=== PATIENT | female | born 1960 | race Caucasian/White ===

== ENCOUNTER 2017-12-19 03:45 | Emergency (ER) | payer OTHER ==
--- NOTE | 2017-12-19 05:23 | ER ---
Nurse's Notes [facility] Name: Prema Root Age: 57 yrs Sex: Female : 1960 Arrival Date: 12/19/2017 Time: 03:46 Bed 6 Private MD: Diagnosis: Cough;Sore throat Presentation: 12/19 03:58 Presenting complaint: Patient states: she had laser iridoctomy last December 14, 2017 and mg2 was prescribed with predisolone drops. she started taking the medication last December 16 at night and woke up with throat swelling. today, she had cough with greenish colored sputum, pain and numbness in the neck and right side of the body. Transition of care: patient was not received from another setting of care. Onset: The symptoms/episode began/occurred 4 days ago. Anaphylaxis evaluation. Onset of symptoms was December 16, 2017. Initial Sepsis Screen: Does the patient meet any 2 criteria? No. Patient's initial sepsis screen is negative. Does the patient have a suspected source of infection? No. Patient's initial sepsis screen is negative. Care prior to arrival: None. 03:58 Method Of Arrival: Ambulatory mg2 03:58 Acuity: DEEPAK 4 mg2 Historical: - Allergies: 04:05 Amoxicillin; mg2 04:05 Codeine; mg2 - Home Meds: 04:05 multivitamin Oral cap daily [Active]; Prilosec 40 mg Oral cpDR 1 cap once daily mg2 [Active]; - PMHx: 04:05 None; mg2 - PSHx: 04:05 Cholecystectomy; mg2 04:19 laser iridoctomy; mg2 - Immunization history:: last may. - Social history:: Smoking status: Patient/guardian denies using tobacco. - Family history:: not pertinent. - Hospitalizations: : No recent hospitalization is reported. Screenin:14 Abuse screen: Denies threats or abuse. Denies injuries from another. Nutritional mg2 screening: No deficits noted. Tuberculosis screening: No symptoms or risk factors identified. Fall Risk None identified. Assessment: 04:11 General: Appears in no apparent distress. comfortable, Behavior is calm, cooperative. mg2 Pain: Complains of pain in right leg and neck Quality of pain is described as numb, Pain began gradually, 2-3 days ago. Is intermittent. Neuro: Level of Consciousness is awake, alert, obeys commands, Oriented to person, place, time, situation. Cardiovascular: Capillary refill < 3 seconds Patient's skin is warm and dry. Respiratory: Airway is patent Respiratory effort is even, unlabored, Respiratory pattern is regular, symmetrical. GI: No signs and/or symptoms were reported involving the gastrointestinal system. : No signs and/or symptoms were reported regarding the genitourinary system. EENT: Throat is clear. Derm: No signs and/or symptoms reported regarding the dermatologic system. Musculoskeletal: No signs and/or symptoms reported regarding the musculoskeletal system. 05:36 Reassessment: discussed d/c and ff-up instructions. verbalizes understanding. Left ED. mg2 Vital Signs: 04:06 BP 142 / 91; Pulse 100; Resp 18; Pulse Ox 100% on R/A; mg2 05:00 BP 117 / 63; Pulse 94; Resp 18; Temp 98.5; Pulse Ox 99% ; Weight 61.23 kg; Height 5 ft. mg2 2 in. (157.48 cm); 05:00 Body Mass Index 24.69 (61.23 kg, 157.48 cm) mg2 ED Course: 03:46 Patient arrived in ED. ds1 03:48 Matheus Thakkar MD is Attending Physician. rn 03:58 Westley Crespo, BOO is Primary Nurse. mg2 04:03 Triage completed. mg2 04:14 Flu and/or RSV swab sent to lab. Strep swab sent to lab. mg2 04:17 Patient moved to radiology via wheelchair. kw 04:17 X-ray completed. Patient tolerated procedure well. kw 04:18 Patient moved back from radiology. kw 04:18 XRAY Chest Pa And Lat (2 Views) In Process Unspecified. EDMS 04:50 Arm band placed on right wrist. mg2 04:50 Patient has correct armband on for positive identification. Bed in low position. Call mg2 light in reach. Noise minimized. 05:04 No provider procedures requiring assistance completed. mg2 Administered Medications: No medications were administered Outcome: 05:23 Discharge ordered by . rn 05:35 Discharged to home ambulatory, with mg2 05:35 Condition: stable 05:35 Discharge instructions given to Instructed on Demonstrated understanding of instructions, follow-up care. 05:37 Patient left the ED. mg2 Signatures: Dispatcher [employer] EDHI MauriceMelanie ds1 Matheus Thakkar MD MD rn Whitley, Kimberlee kw Westley Crespo, RN RN mg2
--- NOTE | 2017-12-19 05:24 | EDPHYS ---
Physician Documentation [facility] Name: Prema Root Age: 57 yrs Sex: Female : 1960 Arrival Date: 12/19/2017 Time: 03:46 Bed 6 Private MD: ED Physician Matheus Thakkar HPI: 12/19 04:07 This 57 yrs old Female presents to ER via Ambulatory with complaints of sore rn throat. 04:07 The patient presents with sore throat. The patient describes throat pain as raw, rn scratchy. Onset: The symptoms/episode began/occurred this morning. Severity of symptoms: At their worst the symptoms were mild, in the emergency department the symptoms are unchanged. Associated signs and symptoms: Pertinent positives: chills, rhinorrhea. The patient has not experienced similar symptoms in the past. Reports had iridotomy recently, prescribed drops, has sensation of throat closing on her, told to stop drops, since then reports post-nasal drip, sore throat, and muscle aches of neck/back/legs. No focal weakness or complaint. No fever. + chills, + tremors that come and go. . Historical: - Allergies: 04:05 Amoxicillin; mg2 04:05 Codeine; mg2 - Home Meds: 04:05 multivitamin Oral cap daily [Active]; Prilosec 40 mg Oral cpDR 1 cap once daily mg2 [Active]; - PMHx: 04:05 None; mg2 - PSHx: 04:05 Cholecystectomy; mg2 04:19 laser iridoctomy; mg2 - Immunization history:: last may. - Social history:: Smoking status: Patient/guardian denies using tobacco. - Family history:: not pertinent. - Hospitalizations: : No recent hospitalization is reported. ROS: 04:07 Constitutional: Negative for fever, and weight loss, Eyes: Negative for injury, pain, rn redness, and discharge, ENT: + sore throat Neck: Negative for injury, pain, and swelling, Cardiovascular: Negative for chest pain, palpitations, and edema, Respiratory: + cough, no sob Abdomen/GI: Negative for abdominal pain, nausea, vomiting, diarrhea, and constipation, MS/Extremity: Negative for injury and deformity, Neuro: Negative for headache, weakness, numbness, tingling, and seizure. Exam: 04:07 Constitutional: This is a well developed, well nourished patient who is awake, alert, rn appears anxious, no acute distress Head/Face: Normocephalic, atraumatic. Eyes: Pupils equal round and reactive to light, extra-ocular motions intact. Lids and lashes normal. Conjunctiva and sclera are non-icteric and not injected. Cornea within normal limits. Periorbital areas with no swelling, redness, or edema. ENT: Nares patent. No nasal discharge, no septal abnormalities noted. Oropharynx with no redness, swelling, or masses, exudates, or evidence of obstruction, uvula midline. Mucous membranes moist. Neck: Trachea midline, no thyromegaly or masses palpated, and no cervical lymphadenopathy. Supple, full range of motion without nuchal rigidity, or vertebral point tenderness. No Meningismus. Respiratory: Lungs have equal breath sounds bilaterally. No increased work of breathing, no retractions or nasal flaring. Skin: Warm, dry with normal turgor. Normal color with no rashes, no lesions, and no evidence of cellulitis. MS/ Extremity: Pulses equal, no cyanosis. Neurovascular intact. Full, normal range of motion. Equal circumference. Neuro: Awake and alert, GCS 15, oriented to person, place, time, and situation. Cranial nerves II-XII grossly intact. Motor strength 5/5 in all extremities. Sensory grossly intact. Cerebellar exam normal. Normal gait. Vital Signs: 04:06 BP 142 / 91; Pulse 100; Resp 18; Pulse Ox 100% on R/A; mg2 05:00 BP 117 / 63; Pulse 94; Resp 18; Temp 98.5; Pulse Ox 99% ; Weight 61.23 kg; Height 5 ft. mg2 2 in. (157.48 cm); 05:00 Body Mass Index 24.69 (61.23 kg, 157.48 cm) mg2 MDM: 03:48 Patient medically screened. rn 05:22 Differential diagnosis: group A strep tonsillitis, influenza, laryngitis, pharyngitis, rn upper respiratory infection, viral syndrome. Data reviewed: vital signs, nurses notes, lab test result(s), radiologic studies, and as a result, I will discharge patient. Counseling: I had a detailed discussion with the patient and/or guardian regarding: the historical points, exam findings, and any diagnostic results supporting the discharge/admit diagnosis, lab results, radiology results, the need for outpatient follow up, to return to the emergency department if symptoms worsen or persist or if there are any questions or concerns that arise at home. Special discussion: I discussed with the patient/guardian in detail that at this point there is no indication for admission to the hospital. It is understood, however, that if the symptoms persist or worsen the patient needs to return immediately for re-evaluation. 12/19 04:06 Order name: Flu; Complete Time: 05: rn 12/19 04:06 Order name: Strep; Complete Time: : rn 12/19 04:06 Order name: XRAY Chest Pa And Lat (2 Views) rn 12/19 05:04 Order name: Throat Culture EDMS Administered Medications: No medications were administered Disposition: 12/19/17 05:23 Discharged to Home. Impression: Cough, Sore throat. - Condition is Stable. - Discharge Instructions: Drug Allergy, Sore Throat, Cough, Adult. - Medication Reconciliation Form, Thank You Letter, Antibiotic Education, Prescription Opioid Use form. - Follow up: Private Physician; When: As needed; Reason: Recheck today's complaints, Re-evaluation by your physician. - Problem is new. - Symptoms have improved. Signatures: Dispatcher [employer] EDMS Matheus Thakkar MD MD rn Gardose, Michele, RN RN mg2
--- NOTE | 2017-12-19 09:32 | RAD REPORT ---
EXAM DESCRIPTION: RAD - Chest Pa And Lat (2 Views) - 12/19/2017 4:25 am CLINICAL HISTORY: Cough and congestion COMPARISON: May 2016 TECHNIQUE: PA and lateral views of the chest were obtained. FINDINGS: The lungs are clear of a mass, infiltrate or failure finding. Prominent interstitial ainsley ngs are similar to the comparison. Heart size is normal and central vasculature is within normal li mits. No pleural effusion or pneumothorax seen. No acute bony finding noted. No aortic abnormality . IMPRESSION: No acute cardiopulmonary finding. Interstitial markings are prominent but unchanged.
== END 2017-12-19 05:37 | disposition home or self-care (01) ==
LOC: ER 03:45
DX: J02.9 Acute pharyngitis, unspecified (principal); Z88.1 Allergy status to other antibiotic agents; Z88.6 Allergy status to analgesic agent
CPT/HCPCS: 71046; 87070; 87081; 87804; 99283

== ENCOUNTER 2024-03-14 20:16 | Emergency (ER) | payer OTHER ==
[2024-03-14] MEDS ORDERED: ACETAMINOPHEN 500 MG TAB ONE (20:46)
[2024-03-14] MEDS ORDERED: IBUPROFEN 400 MG TAB ONE (20:46)
--- NOTE | 2024-03-14 20:46 | ER ---
Nurse's Notes [facility] Name: Prema Root Age: 64 yrs Sex: Female : 1960 Arrival Date: 03/14/2024 Time: 20:16 Bed 2 Private MD: Diagnosis: Acute posterior scalp contusion Presentation: 03/14 20:30 Chief complaint: Patient states: Rack fell and hit her in the back of head. No LOC, no cm10 blurred vision. pt reports headache and light headedness. Coronavirus screen: Client denies travel out of the [place] in the last 14 days. At this time, the client does not indicate any symptoms associated with coronavirus-19. Ebola Screen: Patient denies travel to an Ebola-affected area in the 21 days before illness onset. No symptoms or risks identified at this time. Initial Sepsis Screen: Does the patient meet any 2 criteria? No. Patient's initial sepsis screen is negative. Does the patient have a suspected source of infection? No. Patient's initial sepsis screen is negative. Risk Assessment: Do you want to hurt yourself or someone else? Patient reports no desire to harm self or others. Onset of symptoms was March 14, 2024. 20:30 Method Of Arrival: Ambulatory cm10 20:30 Acuity: DEEPAK 3 cm10 Triage Assessment: 20:31 General: Appears in no apparent distress. comfortable, Behavior is calm, cooperative. cm10 Neuro: No deficits noted. Level of Consciousness is awake, alert, obeys commands, Oriented to person, place, time, situation. Historical: - Allergies: 20:31 Amoxicillin; cm10 20:31 Codeine; cm10 - PMHx: 20:31 Osteoporosis; cm10 - Immunization history:: Adult Immunizations up to date. - Infectious Disease History:: Denies. - Social history:: Smoking status: Patient denies any tobacco usage or history of. - Family history:: not pertinent. Screenin:35 [facility] ED Fall Risk Assessment (Adult) History of falling in the last 3 months, kd3 including since admission No falls in past 3 months (0 pts) Confusion or Disorientation No (0 pts) Intoxicated or Sedated No (0 pts) Impaired Gait No (0 pts) Mobility Assist Device Used No (0 pt) Altered Elimination No (0 pt) Score/Fall Risk Level 0 - 2 = Low Risk Oriented to surroundings. Abuse screen: Denies threats or abuse. Denies injuries from another. Nutritional screening: No deficits noted. Tuberculosis screening: No symptoms or risk factors identified. Assessment: 20:33 General: Appears in no apparent distress. Behavior is calm, cooperative. General: Pt kd3 has no laceration or hematoma to the site of impact. Pt has no neurological deficits and only reports slight headache. . Pain: Complains of pain in right parietal area. Neuro: Level of Consciousness is awake, alert, obeys commands, Oriented to person, place, time, situation. Respiratory: Airway is patent Trachea midline Respiratory effort is even, unlabored, Respiratory pattern is regular, symmetrical. 20:53 Reassessment: Patient appears in no apparent distress at this time. Patient and/or tm6 family updated on plan of care and expected duration. Pain level reassessed. Patient is alert, oriented x 3, equal unlabored respirations, skin warm/dry/pink. Vital Signs: 20:30 BP 154 / 81; Pulse 72; Resp 16; Temp 98.4; Pulse Ox 100% ; Weight 68.04 kg; Pain 4/10; cm10 20:53 BP 153 / 78; Pulse 74; Resp 17; Temp 98.4; Pulse Ox 100% on R/A; Pain 4/10; tm6 20:30 Pain Scale: Adult cm10 20:53 Pain Scale: Adult tm6 Armida Coma Score: 20:42 Eye Response: spontaneous(4). Motor Response: obeys commands(6). Verbal Response: sp4 oriented(5). Total: 15. 20:44 Eye Response: spontaneous(4). Motor Response: obeys commands(6). Verbal Response: sp4 oriented(5). Total: 15. ED Course: 20:22 Patient arrived in ED. ra3 20:26 Trey Solomon MD is Attending Physician. sp4 20:31 Triage completed. cm10 20:32 Arm band placed on Patient placed in an exam room, on a stretcher. cm10 20:33 Shanelle Lund, BOO is Primary Nurse. kd3 20:36 Patient has correct armband on for positive identification. Provided Education on: Head kd3 injury precautions . 20:53 No provider procedures requiring assistance completed. Patient did not have IV access tm6 during this emergency room visit. Administered Medications: 20:49 Drug: Ibuprofen PO 400 mg PO once Route: PO; tm6 20:49 Drug: Acetaminophen PO 1000 mg PO once Route: PO; tm6 Medication: 20:36 VIS not applicable for this client. kd3 Outcome: 20:45 Discharge ordered by . sp4 20:53 Discharged to home ambulatory, with family, tm6 20:53 Condition: stable 20:53 Discharge instructions given to patient, family, Instructed on discharge instructions, follow up and referral plans. Demonstrated understanding of instructions, follow-up care, 20:53 Patient left the ED. tm6 Signatures: Shanelle Lund RN RN kd3 Trey Solomon MD MD sp4 Isabelle De Jesus RN RN cm10 Madeline Robbins RN RN tm6 Jenelle Morejon 3
--- NOTE | 2024-03-14 20:46 | EDPHYS ---
Physician Documentation [facility] Name: Prema Root Age: 64 yrs Sex: Female : 1960 Arrival Date: 03/14/2024 Time: 20:16 Bed 2 Private MD: ED Physician Trey Solomon HPI: 03/14 20:26 This 64 yrs old Female presents to ER via Unassigned with complaints of Head Injury sp4 Without LOC-Adult, Dizziness, Headache. 20:42 Very pleasant 64-year-old female presents with acute head injury to posterior scalp sp4 from her garage. Patient states she did not have a loss of consciousness, did not have vomiting, did not have blurry vision, did not have balance problem. Denies taking any blood thinners like aspirin up any prescribed blood thinning medication. . Historical: - Allergies: 20:31 Amoxicillin; cm10 20:31 Codeine; cm10 - PMHx: 20:31 Osteoporosis; cm10 - Immunization history:: Adult Immunizations up to date. - Infectious Disease History:: Denies. - Social history:: Smoking status: Patient denies any tobacco usage or history of. - Family history:: not pertinent. ROS: 20:42 Constitutional: Negative for fever, chills, and weight loss, positive head injury and sp4 positive posterior scalp contusion 20:42 All other systems are negative, Exam: 20:42 Constitutional: This is a well developed, well nourished patient who is awake, alert, sp4 and in no acute distress. Head/Face: Normocephalic, atraumatic. Eyes: Pupils equal round and reactive to light, extra-ocular motions intact. Lids and lashes normal. Conjunctiva and sclera are not injected. Cornea within normal limits. Periorbital areas with no swelling, redness, or edema. Normal bilateral funduscopy ENT: Nares patent. No nasal discharge, no septal abnormalities noted. Tympanic membranes are normal and external auditory canals are clear. Oropharynx with no redness, swelling, or masses, exudates, or evidence of obstruction, uvula midline. Mucous membranes moist. Neck: Trachea midline, no thyromegaly or masses palpated, and no cervical lymphadenopathy. Supple, full range of motion without nuchal rigidity, or vertebral point tenderness. Chest/axilla: Normal chest wall appearance and motion. Nontender with no deformity. No lesions are appreciated. Cardiovascular: Regular rate and rhythm with a normal S1 and S2. No gallops, murmurs, or rubs. Normal PMI, no JVD. No pulse deficits. Respiratory: Lungs have equal breath sounds bilaterally, clear to auscultation and percussion. No rales, rhonchi or wheezes noted. No increased work of breathing, no retractions or nasal flaring. Abdomen/GI: Soft, with normal bowel sounds. No distension or tympany. No guarding or rebound. No evidence of tenderness throughout. Back: No spinal tenderness. No costovertebral tenderness. Skin: Warm, dry with normal turgor. Normal color with no rashes, no lesions, and no evidence of cellulitis. MS/ Extremity: Pulses equal, no cyanosis. Neurovascular intact. Full, normal range of motion. Neuro: Awake and alert, GCS 15, oriented to person, place, time, and situation. Cranial nerves II-XII grossly intact. Motor strength 5/5 in all extremities. Sensory grossly intact. Psych: Awake, alert, with orientation to person, place and time. Behavior, mood, and affect are within normal limits Vital Signs: 20:30 BP 154 / 81; Pulse 72; Resp 16; Temp 98.4; Pulse Ox 100% ; Weight 68.04 kg; Pain 4/10; cm10 20:53 BP 153 / 78; Pulse 74; Resp 17; Temp 98.4; Pulse Ox 100% on R/A; Pain 4/10; tm6 20:30 Pain Scale: Adult cm10 20:53 Pain Scale: Adult tm6 Kenefic Coma Score: 20:42 Eye Response: spontaneous(4). Motor Response: obeys commands(6). Verbal Response: sp4 oriented(5). Total: 15. 20:44 Eye Response: spontaneous(4). Motor Response: obeys commands(6). Verbal Response: sp4 oriented(5). Total: 15. MDM: 20:41 Patient medically screened. sp4 20:44 Differential diagnosis: Contusion of Hematoma on Laceration of Concussion cerebral sp4 contusion. Scoring Tools [place] CT Head. ED course: Based on examination patient does not warrant CT head. Will recommend to return to the emergency room in case headache becomes worse. And will provide Tylenol and ibuprofen.. Administered Medications: 20:49 Drug: Ibuprofen PO 400 mg PO once Route: PO; tm6 20:49 Drug: Acetaminophen PO 1000 mg PO once Route: PO; tm6 Disposition Summary: 03/14/24 20:45 Discharge Ordered Problem: new sp4 Symptoms: have improved sp4 Condition: Stable sp4 Diagnosis - Acute posterior scalp contusion sp4 Followup: sp4 - With: Private Physician - When: As needed - Reason: Discharge Instructions: - Discharge Summary Sheet sp4 - Contusion, [id number] sp4 Forms: - Patient Portal Instructions sp4 Signatures: Trey Solomon MD MD sp4 Isabelle De Jesus RN RN cm10 Madeline Robbins RN RN tm6
[2024-03-15 19:40] VITALS: BP 153/78; TEMP 98.4; O2SAT 100
== END 2024-03-14 20:53 | disposition home or self-care (01) ==
LOC: ER 20:16
DX: S00.03XA Contusion of scalp, initial encounter (principal); W20.8XXA Other cause of strike by thrown, projected or falling object, initial encounter; Z88.0 Allergy status to penicillin; Z88.5 Allergy status to narcotic agent; M81.0 Age-related osteoporosis without current pathological fracture
CPT/HCPCS: 99283

== ENCOUNTER 2024-04-04 06:20 | Emergency (ER) | payer OTHER ==
[2024-04-04] MEDS ORDERED: NA CHLORIDE 0.9% 1,000 ML ONE (07:08)
[2024-04-04 07:15] LABS: Absolute Eosinophils 0.1 K/uL (0-0.5); Absolute Lymphocytes (CBC) 1.5 K/uL (0.7-4.9); Absolute Monocytes 0.5 K/uL (0.1-1.3); Absolute Neutrophil 5.9 K/uL (1.8-8.0); Basophils % 0.5 % (0-1.3); Eosinophils % 0.8 % (0-4.4); Hematocrit 41.5 % (36.0-45.0); Hemoglobin 13.9 g/dL (12.0-15.0); Lymphocytes % 18.3 % (15.3-44.8); MCH 31.5 pg (27.0-35.0); MCHC 33.4 g/dL (32.0-36.0); MCV 94.5 fL (80-100); MPV 8.1 fL (7.6-11.3); Monocytes % 6.6 % (3.3-12.3); Neutrophils % 73.8 % (41.7-73.7); Platelets 219 thou/uL (152-406); RBC Red Blood Cell Count 4.39 M/uL (3.86-4.86); Red Cell Distribution Width 13.1 % (12.1-15.2)
[2024-04-04 07:34] LABS: Albumin 3.5 g/dL (3.4-5.0); Anion Gap 4.8 mEq/L (5.0-15.0); Bilirubin Total 0.5 mg/dL (0.2-1.0); Globulin 3.5 g/dL (2.3-3.5); Potassium 3.8 mEq/L (3.5-5.1)
[2024-04-04 07:58] LABS: Specific Gravity 1.026 (1.005-1.030); Sqamous Epithelial <5 /HPF (None Seen); Urine Bacteria None Seen /HPF (<20); Urine Bilirubin NEGATIVE (Negative); Urine Blood Negative (Negative); Urine Clarity Clear (Clear); Urine Color Light-Yellow (Yellow); Urine Culture Reflex Order NOT NEEDED; Urine Glucose NEGATIVE (Negative); Urine Ketones NEGATIVE (Negative); Urine Microscopic Reflex YN ORDER UMIC; Urine Mucus 1+ /HPF (None Seen); Urine Nitrite NEGATIVE (Negative); Urine Protein NEGATIVE (Negative); Urine RBC <5 /HPF (None Seen); Urine Urobilinogen Normal (Normal); Urine WBC <5 /HPF (<5); Urine pH 5.5 (5.0-7.0)
--- NOTE | 2024-04-04 08:26 | RAD REPORT ---
EXAM DESCRIPTION: CT - Abdomen Pelvis W Contrast - 04/04/2024 8:07 am CLINICAL HISTORY: ABD PAIN COMPARISON: Abdomen Pelvis W Contrast dated 05/25/2016; CT ABD PELVIS W CONTRAST dated 06/26/2012 TECHNIQUE: Thin cut axial CT imaging of the abdomen and pelvis was performed following intravenous a dministration of 100 mL Isovue 300. Multiplanar reformats were generated and reviewed. All CT scans are performed using dose optimization technique as appropriate and may include automated exposure control or mA/KV adjustment according to patient size. FINDINGS: No suspicious findings in the lung bases. The liver, spleen, adrenal glands, and pancreas show no suspicious findings. Gallbladder was surgical ly removed. Metallic gastric band/prosthesis at the GE junction. Symmetric renal function is seen with no hydronephrosis or suspicious renal mass. Focal wall thickening of the distal sigmoid colon with adjacent fat stranding. A tiny locule of intra mural air, versus gas within a small diverticulum, seen along the inferior wall. No additional fluid collections or extraluminal gas. No free air, or free fluid. No hernia, mass or bulky lymphadenopathy . The uterus is retroverted with a calcified fibroid at the fundus. Appendix is unremarkable. The uri nary bladder is without significant finding. No suspicious bony findings. IMPRESSION: Findings of acute uncomplicated distal sigmoid diverticulitis. The findings were communicated to Dr. Briggs on 04/04/2024 at 08:20 hours.
--- NOTE | 2024-04-04 08:29 | EDPHYS ---
Physician Documentation [facility] Name: Prema Root Age: 64 yrs Sex: Female : 1960 Arrival Date: 04/04/2024 Time: 06:20 Bed 16 Private MD: ED Physician Gabriela Briggs HPI: 04/04 06:59 This 64 yrs old Female presents to ER via Ambulatory with complaints of sp4 Abdominal Pain. 07:07 64-year-old female presents with acute bilateral lower abdominal pain starting earlier sp4 this morning. Patient denied fever or vomiting.. Historical: - Allergies: 06:39 Amoxicillin; kd4 06:39 Codeine; kd4 - Immunization history:: Adult Immunizations up to date, Client reports receiving the 2nd dose of the Covid vaccine. - Infectious Disease History:: Denies. - Social history:: Smoking status: Patient denies any tobacco usage or history of. Patient/guardian denies using alcohol, street drugs, IV drugs, tobacco products. - Family history:: not pertinent. ROS: 07:07 Constitutional: Negative for fever, chills, and weight loss, positive abdominal pain sp4 positive bilateral lower abdominal pain 07:07 All other systems are negative, Exam: 07:07 Constitutional: This is a well developed, well nourished patient who is awake, alert, sp4 and in no acute distress. Head/Face: Normocephalic, atraumatic. Eyes: Pupils equal round and reactive to light, extra-ocular motions intact. Lids and lashes normal. Conjunctiva and sclera are not injected. Cornea within normal limits. Periorbital areas with no swelling, redness, or edema. ENT: Nares patent. No nasal discharge, no septal abnormalities noted. Tympanic membranes are normal and external auditory canals are clear. Oropharynx with no redness, swelling, or masses, exudates, or evidence of obstruction, uvula midline. Mucous membranes moist. Neck: Trachea midline, no thyromegaly or masses palpated, and no cervical lymphadenopathy. Supple, full range of motion without nuchal rigidity, or vertebral point tenderness. Chest/axilla: Normal chest wall appearance and motion. Nontender with no deformity. No lesions are appreciated. Cardiovascular: Regular rate and rhythm with a normal S1 and S2. No gallops, murmurs, or rubs. Normal PMI, no JVD. No pulse deficits. Respiratory: Lungs have equal breath sounds bilaterally, clear to auscultation and percussion. No rales, rhonchi or wheezes noted. No increased work of breathing, no retractions or nasal flaring. Abdomen/GI: Soft, with normal bowel sounds. No distension or tympany. No guarding or rebound. No evidence of tenderness throughout. Back: No spinal tenderness. No costovertebral tenderness. Skin: Warm, dry with normal turgor. Normal color with no rashes, no lesions, and no evidence of cellulitis. MS/ Extremity: Pulses equal, no cyanosis. Neurovascular intact. Full, normal range of motion. Neuro: Awake and alert, GCS 15, oriented to person, place, time, and situation. Cranial nerves II-XII grossly intact. Motor strength 5/5 in all extremities. Sensory grossly intact. Psych: Awake, alert, with orientation to person, place and time. Behavior, mood, and affect are within normal limits Vital Signs: 06:37 BP 134 / 88; Pulse 78; Resp 18; Temp 97.6(O); Pulse Ox 99% on R/A; Weight 68.04 kg; kd4 Height 5 ft. 2 in. ; Pain 7/10; 07:13 BP 137 / 69; Pulse 72; Resp 16 S; Pulse Ox 99% on R/A; kc6 06:37 Body Mass Index 27.44 (68.04 kg, 157.48 cm) kd4 06:37 Pain Scale: Adult kd4 [place] Coma Score: 06:42 Eye Response: spontaneous(4). Motor Response: obeys commands(6). Verbal Response: kd4 oriented(5). Total: 15. 07:07 Eye Response: spontaneous(4). Motor Response: obeys commands(6). Verbal Response: sp4 oriented(5). Total: 15. MDM: 06:52 Patient medically screened. sp4 07:10 Differential diagnosis: appendicitis, bowel obstruction, cholecystitis, Cholelithiasis, sp4 diverticulitis. Data reviewed: vital signs, nurses notes, old medical records, lab test result(s), radiologic studies, CT scan. Transition of care: After a detail discussion of the patient's case, care is transferred to Gabriela Briggs MD. 07:59 ED course: Patient signed out to me by nighttime physician. Patient is a 64-year-old sp3 female with no significant past medical history presents with diffuse left lower quadrant abdominal pain mild in nature. Patient is concerned about diverticulitis which she has had in the distant past. Laboratory values and urinalysis demonstrate no significant findings. CT scan is pending and if negative patient will be safely discharged home, if positive appropriate intervention as indicated. Patient with normal vital signs in no acute distress. Pain is controlled and patient declines pain medication. All questions answered and CT is pending at this time.. 08:28 ED course: CT demonstrates mild uncomplicated diverticulitis. We will discharge patient sp3 home on oral antibiotics and follow-up to PCP.. 04/04 06:47 Order name: CBC with Diff; Complete Time: 07:49 sp4 04/04 06:47 Order name: CMP; Complete Time: 07:49 sp4 04/04 06:47 Order name: Lipase; Complete Time: 07:49 sp4 04/04 06:47 Order name: Urinalysis w/ reflexes; Complete Time: 07:59 sp4 04/04 06:59 Order name: CT Abd/Pelvis - IV Contrast Only; Complete Time: 08:28 sp4 04/04 06:47 Order name: IV Saline Lock; Complete Time: 07:04 sp4 04/04 06:47 Order name: Labs collected and sent; Complete Time: 07:04 sp4 Administered Medications: 07:11 Drug: NS 0.9% IV 1000 ml IV at 1 bolus Per protocol; 1000 mL bolus Route: IV; Rate: 1 kc6 bolus; Site: left antecubital; 08:30 Follow up: Response: No adverse reaction; IV Status: Completed infusion; IV Intake: kc6 1000ml Disposition Summary: 04/04/24 08:29 Discharge Ordered Notes: Location: Home sp3 Condition: Stable sp3 Diagnosis - Diverticulitis of intestine, part unspecified, without perforation or abscess sp3 without bleeding Followup: sp3 - With: Private Physician - When: Upon discharge from the Emergency Department - Reason: Continuance of care Discharge Instructions: - Discharge Summary Sheet sp3 - Diverticulitis sp3 Forms: - Medication Reconciliation Form sp3 - Antibiotic Education sp3 - Prescription Opioid Use sp3 - Patient Portal Instructions sp3 - Leadership Thank You Letter sp3 Prescriptions: - Cipro 500 mg Oral Tablet - take 1 tablet ORAL route every 12 hours for 10 days; 20 tablet; Refills: 0, sp3 Product Selection Permitted - Flagyl 500 mg Oral Tablet - take 1 tablet ORAL route every 8 hours for 10 days; 30 tablet; Refills: 0, sp3 Product Selection Permitted Signatures: Dispatcher [employer] EDMS Gabriela Briggs MD MD sp3 Jackie Ferreira RN RN kc6 Trey Solomon MD MD sp4 Raymon Vickers RN RN kd4 Corrections: (The following items were deleted from the chart) 06:48 06:48 CBC+H.LAB.BRZ ordered. EDMS EDMS 06:48 06:48 COMPREHENSIVE METABOLIC PANEL+C.LAB.BRZ ordered. EDMS EDMS 06:48 06:48 LIPASE+C.LAB.BRZ ordered. EDMS EDMS 06:48 06:48 Urinalysis+U.LAB.BRZ ordered. EDMS EDMS
--- NOTE | 2024-04-04 08:29 | ER ---
Nurse's Notes [facility] Name: Prema Root Age: 64 yrs Sex: Female : 1960 Arrival Date: 04/04/2024 Time: 06:20 Bed 16 Private MD: Diagnosis: Diverticulitis of intestine, part unspecified, without perforation or abscess without bleeding Presentation: 04/04 06:37 Chief complaint: Patient states: Lower abdominal pain 7/10 radiates to lower back. kd4 Coronavirus screen: At this time, the client does not indicate any symptoms associated with coronavirus-19. Ebola Screen: No symptoms or risks identified at this time. Initial Sepsis Screen: Does the patient meet any 2 criteria? No. Patient's initial sepsis screen is negative. Does the patient have a suspected source of infection? No. Patient's initial sepsis screen is negative. Risk Assessment: Do you want to hurt yourself or someone else? Patient reports no desire to harm self or others. Onset of symptoms was April 04, 2024 at 02:30. 06:37 Method Of Arrival: Ambulatory 4 06:37 Acuity: DEEPAK 3 kd4 Triage Assessment: 06:39 General: Appears in no apparent distress. comfortable, Behavior is calm, cooperative. kd4 Pain: Complains of pain in lower abdominal pain Pain currently is 7 out of 10 on a pain scale. Neuro: Denies weakness dizziness, headache. Cardiovascular: Reports nausea, Denies chest pain, shortness of breath. Respiratory: Airway is patent Trachea midline Respiratory effort is even, Respiratory pattern is regular, Denies shortness of breath. GI: Reports lower abdominal pain, diarrhea, nausea. : Denies burning with urination. Historical: - Allergies: 06:39 Amoxicillin; kd4 06:39 Codeine; kd4 - Immunization history:: Adult Immunizations up to date, Client reports receiving the 2nd dose of the Covid vaccine. - Infectious Disease History:: Denies. - Social history:: Smoking status: Patient denies any tobacco usage or history of. Patient/guardian denies using alcohol, street drugs, IV drugs, tobacco products. - Family history:: not pertinent. Screenin:42 [facility] ED Fall Risk Assessment (Adult) History of falling in the last 3 months, kd4 including since admission No falls in past 3 months (0 pts) Confusion or Disorientation No (0 pts) Intoxicated or Sedated No (0 pts) Impaired Gait No (0 pts) Mobility Assist Device Used No (0 pt) Altered Elimination No (0 pt) Score/Fall Risk Level 0 - 2 = Low Risk Oriented to surroundings. Abuse screen: Denies threats or abuse. Nutritional screening: No deficits noted. Tuberculosis screening: No symptoms or risk factors identified. Assessment: 06:42 General: see triage assessment. 4 07:07 General: Report given to BOO Harris. 4 07:11 General: Appears in no apparent distress. comfortable, well groomed, well developed, kc6 Behavior is calm, cooperative, appropriate for age. Pain: Complains of pain in posterior aspect of left lateral abdomen, right lower quadrant and left lower quadrant. Neuro: Level of Consciousness is awake, alert, obeys commands, Oriented to person, place, time, situation, Appropriate for age. Cardiovascular: Capillary refill < 3 seconds. Respiratory: Airway is patent Trachea midline Respiratory effort is even, unlabored, Respiratory pattern is regular, symmetrical. GI: No signs and/or symptoms were reported involving the gastrointestinal system. Abdomen is flat, non-distended, Bowel sounds present X 4 quads. Abd is soft and non tender X 4 quads. : No signs and/or symptoms were reported regarding the genitourinary system. EENT: No signs and/or symptoms were reported regarding the EENT system. Derm: No signs and/or symptoms reported regarding the dermatologic system. Skin is intact, is healthy with good turgor, Skin is pink, warm \T\ dry. Musculoskeletal: No signs and/or symptoms reported regarding the musculoskeletal system. Circulation, motion, and sensation intact. Capillary refill < 3 seconds, Range of motion: intact in all extremities. 08:13 Reassessment: Patient appears in no apparent distress at this time. No changes from kc6 previously documented assessment. Patient and/or family updated on plan of care and expected duration. Pain level reassessed. Patient is alert, oriented x 3, equal unlabored respirations, skin warm/dry/pink. Vital Signs: 06:37 BP 134 / 88; Pulse 78; Resp 18; Temp 97.6(O); Pulse Ox 99% on R/A; Weight 68.04 kg; kd4 Height 5 ft. 2 in. ; Pain 7/10; 07:13 BP 137 / 69; Pulse 72; Resp 16 S; Pulse Ox 99% on R/A; kc6 06:37 Body Mass Index 27.44 (68.04 kg, 157.48 cm) kd4 06:37 Pain Scale: Adult kd4 [place] Coma Score: 06:42 Eye Response: spontaneous(4). Motor Response: obeys commands(6). Verbal Response: kd4 oriented(5). Total: 15. 07:07 Eye Response: spontaneous(4). Motor Response: obeys commands(6). Verbal Response: sp4 oriented(5). Total: 15. ED Course: 06:27 Patient arrived in ED. jj6 06:37 Raymon Vickers, RN is Primary Nurse. kd4 06:39 Triage completed. kd4 06:39 Arm band placed on. kd4 06:42 Patient has correct armband on for positive identification. Bed in low position. Call kd4 light in reach. 06:46 Trey Solomon MD is Attending Physician. sp4 07:00 Report received from Raymon Vickers RN. kc6 07:00 Pulse ox on. NIBP on. Door closed. Noise minimized. Lights dimmed. Warm blanket given. kc6 Pillow given. 07:04 Initial lab(s) drawn, by me, sent to lab. Inserted saline lock: 20 gauge in left kd4 antecubital area, using aseptic technique. 07:05 Attending Physician role handed off by Trey Solomon MD sp3 07:05 Gabriela Briggs MD is Attending Physician. sp3 07:07 Attending Physician role handed off by Gabriela Briggs MD sp4 07:07 Trey Solomon MD is Attending Physician. sp4 07:37 Attending Physician role handed off by Trey Solomon MD sp3 07:37 Gabriela Briggs MD is Attending Physician. sp3 08:08 CT Abd/Pelvis - IV Contrast Only In Process Unspecified. EDMS 08:40 No provider procedures requiring assistance completed. IV discontinued, intact, kc6 bleeding controlled, No redness/swelling at site. Pressure dressing applied. Administered Medications: 07:11 Drug: NS 0.9% IV 1000 ml IV at 1 bolus Per protocol; 1000 mL bolus Route: IV; Rate: 1 kc6 bolus; Site: left antecubital; 08:30 Follow up: Response: No adverse reaction; IV Status: Completed infusion; IV Intake: kc6 1000ml Medication: 08:40 VIS not applicable for this client. kc6 Intake: 08:30 IV: 1000ml; Total: 1000ml. kc6 Outcome: 08:29 Discharge ordered by . sp3 08:40 Discharged to home ambulatory, kc6 08:40 Condition: good 08:40 Discharge instructions given to patient, Instructed on discharge instructions, follow up and referral plans. medication usage, Demonstrated understanding of instructions, follow-up care, medications, Prescriptions given X 2, 08:40 Patient left the ED. kc6 Signatures: Dispatcher [employer] EDMS Gabriela Briggs MD MD sp3 Dionne Cohen6 Jackie Ferreira, RN RN kc6 Trey Solomon MD MD sp4 Raymon Vickers RN RN kd4
[2024-04-04 08:50] VITALS: TEMP 97.6; O2SAT 99
[2024-04-04 08:56] VITALS: BP 137/69
== END 2024-04-04 08:40 | disposition home or self-care (01) ==
LOC: ER 06:20
DX: K57.32 Diverticulitis of large intestine without perforation or abscess without bleeding (principal)
CPT/HCPCS: 85025; 81001; 36415; 83690; 80053; 74177; Q9967; J7030

== ENCOUNTER 2024-04-04 18:25 | Inpatient (IN) | payer OTHER ==
[2024-04-04 19:45] LABS: Absolute Lymphocytes (CBC) 0.9 K/uL (0.7-4.9); Absolute Monocytes 0.9 K/uL (0.1-1.3); Absolute Neutrophil 11.1 K/uL (1.8-8.0); Basophils % 0.2 % (0-1.3); Hematocrit 40.7 % (36.0-45.0); Hemoglobin 13.6 g/dL (12.0-15.0); Lymphocytes % 7.2 % (15.3-44.8); MCH 31.4 pg (27.0-35.0); MCHC 33.4 g/dL (32.0-36.0); MCV 93.9 fL (80-100); MPV 8.3 fL (7.6-11.3); Monocytes % 6.6 % (3.3-12.3); Platelets 231 thou/uL (152-406); RBC Red Blood Cell Count 4.34 M/uL (3.86-4.86); Red Cell Distribution Width 13.2 % (12.1-15.2)
[2024-04-04 19:55] LABS: Specific Gravity 1.013 (1.005-1.030); Sqamous Epithelial <5 /HPF (None Seen); Urine Bacteria None Seen /HPF (<20); Urine Bilirubin NEGATIVE (Negative); Urine Blood Negative (Negative); Urine Clarity Clear (Clear); Urine Color Light-Yellow (Yellow); Urine Culture Reflex Order NOT NEEDED; Urine Glucose NEGATIVE (Negative); Urine Ketones NEGATIVE (Negative); Urine Microscopic Reflex YN ORDER UMIC; Urine Mucus Slight /HPF (None Seen); Urine Nitrite NEGATIVE (Negative); Urine Protein NEGATIVE (Negative); Urine RBC <5 /HPF (None Seen); Urine Urobilinogen Normal (Normal); Urine WBC <5 /HPF (<5)
[2024-04-04 20:04] LABS: Albumin 3.5 g/dL (3.4-5.0); Albumin/Globulin Ratio 0.9 (1.1-1.8); Anion Gap 11.1 mEq/L (5.0-15.0); Bilirubin Total 0.6 mg/dL (0.2-1.0); Globulin 3.7 g/dL (2.3-3.5); Potassium 4.1 mEq/L (3.5-5.1); Protein, Total 7.2 g/dL (6.4-8.2)
--- NOTE | 2024-04-04 20:50 | EDPHYS ---
Physician Documentation [facility] Name: Prema Root Age: 64 yrs Sex: Female : 1960 Arrival Date: 04/04/2024 Time: 18:25 Bed 6 Private MD: ED Physician Trey Solomon HPI: 04/04 21:11 This 64 yrs old Female presents to ER via Ambulatory with complaints of Bloody Stools - kb including mucus. 21:11 Patient is a 64-year-old female who presents for left lower quadrant pain with nausea kb and mucus/blood in stool. States she was seen this morning, diagnosed with diverticulitis and sent home with antibiotics. Came back because the pain has gotten worse and she is concerned that the antibiotics are not working.. Historical: - Allergies: 18:51 Amoxicillin; dd2 18:51 Codeine; dd2 - PMHx: 18:51 Osteoporosis; Diverticulitis; dd2 - PSHx: 18:51 Cholecystectomy; LINX band; dd2 - Immunization history:: Adult Immunizations up to date. - Infectious Disease History:: Denies. - Social history:: Smoking status: Patient denies any tobacco usage or history of. ROS: 21:11 Constitutional: As per HPI kb Exam: 21:11 Constitutional: This is a well developed, well nourished patient who is awake, alert, kb and in no acute distress. Head/Face: Normocephalic, atraumatic. ENT: Moist Mucous membranes Cardiovascular: Regular rate Respiratory: Respirations even and unlabored. No increased work of breathing. Talking in full sentences Skin: Warm, dry with normal turgor. Normal color. MS/ Extremity: Pulses equal, no cyanosis. Neurovascular intact. Full, normal range of motion. Neuro: Awake and alert, GCS 15, oriented to person, place, time, and situation. Moves all extremities. Normal gait. 21:11 Abdomen/GI: Inspection: abdomen appears normal, Bowel sounds: normal, Palpation: soft, in all quadrants, moderate abdominal tenderness, in the left lower quadrant, Vital Signs: 18:47 BP 135 / 66; Pulse 94; Resp 15; Temp 98.1; Pulse Ox 97% ; Weight 68.04 kg; Height 5 ft. dd2 2 in. ; 19:00 BP 134 / 68; Pulse 90; Resp 16; Pulse Ox 96% on R/A; jb4 21:42 BP 125 / 64; Pulse 84; Resp 16; Pulse Ox 97% on R/A; jb4 23:45 BP 92 / 61; Pulse 83; Resp 16; Pulse Ox 96% on R/A; jb4 04/05 00:01 BP 92 / 61; Pulse 88; Resp 16; Temp 100.7(O); Pulse Ox 97% on R/A; jb4 01:00 BP 118 / 54; Pulse 73; Resp 16; Pulse Ox 95% on R/A; jb4 04/04 18:47 Body Mass Index 27.44 (68.04 kg, 157.48 cm) dd2 MDM: 04/04 18:56 Patient medically screened. kb 21:11 Differential diagnosis: Diverticulitis, GI bleed, UTI, failed outpatient therapy. Data kb reviewed: vital signs, nurses notes. Consideration of Admission/Observation Patient was admitted/placed on observation. Escalation of care including admission/observation considered. Management of patient was discussed with the following: Hospitalist: Edgar accepts patient for admission under Dr. Thakkar. Test considered but Not performed: CT: CT considered but 1 was done this morning. Historians other than the Patient: Daughter/Son: Son. Counseling: I had a detailed discussion with the patient and/or guardian regarding the historical points, exam findings, and any diagnostic results supporting the discharge/admit diagnosis, lab results, the need for further work-up and treatment in the hospital. ED course: Patient concerned about not being able to tolerate antibiotics due to nausea and that the pain will continue to worsen. Prefers admission versus outpatient treatment. 04/04 18:56 Order name: CBC with Diff; Complete Time: 21:43 kb 04/04 18:56 Order name: CMP; Complete Time: 20:06 kb 04/04 18:56 Order name: Lipase; Complete Time: 20:06 kb 04/04 18:56 Order name: Urinalysis w/ reflexes; Complete Time: 19:55 kb 04/04 19:57 Order name: CBC Smear Scan; Complete Time: 21:43 EDMS 04/04 20:28 Order name: Blood Culture Adult (2) kb 04/04 20:28 Order name: Lactate w/ 2H reflex if indic.; Complete Time: 22:08 kb 04/04 20:28 Order name: Protime (+inr); Complete Time: 22:05 kb 04/04 20:28 Order name: Ptt, Activated; Complete Time: 22:05 kb 04/04 18:56 Order name: IV Saline Lock; Complete Time: 19:29 kb 04/04 18:56 Order name: Labs collected and sent; Complete Time: 19:29 kb 04/04 20:28 Order name: EKG - Nurse/Tech; Complete Time: 22:25 kb Administered Medications: 21:51 Drug: NS 0.9% IV 500 ml IV at bolus once Route: IV; Rate: bolus; Site: right forearm; jb4 21:51 Drug: metroNIDAZOLE IVPB 500 mg 100 ml IVPB at 200 ml/hr once over 30 mins; administer jb4 after blood cultures obtained Volume: 100 ml; Route: IVPB; Rate: 200 ml/hr; Infused Over: 30 mins; Site: right forearm; 21:52 Drug: Ciprofloxacin IVPB 400 mg 200 ml IVPB once over 60 mins; administer after blood jb4 cultures obtained Volume: 200 ml; Route: IVPB; Infused Over: 60 mins; Site: right antecubital; 04/05 00:01 Drug: Acetaminophen PO 1000 mg PO once Route: PO; jb4 Disposition: 04/04 22:05 Co-signature as Attending Physician, Trey Solomon MD I agree with the assessment sp4 and plan of care. I reviewed the patient's care provided by Advanced Practice Provider \T\ agree w/ the diagnosis \T\ care plan. I personally saw the pt \T\ performed a substantive portion of the visit, incldng all aspects of the (History/Exam/Medical Decision Making). Disposition Summary: 04/04/24 20:49 Hospitalization Ordered Notes: Hospitalization Status: Inpatient Admission kb Condition: Stable kb Problem: new kb Symptoms: are unchanged kb Bed/Room Type: Standard kb Provider: Darius Thakkar(04/04/24 21:06) kb Location: Telemetry/MedSurg (Inpatient)(04/04/24 23:05) vc1 Room Assignment: 218(04/04/24 23:12) rv1 Diagnosis - Diverticulitis of intestine, part unspecified, without perforation or abscess with kb bleeding Forms: - Medication Reconciliation Form kb - SBAR form kb - Leadership Thank You Letter kb Signatures: Dispatcher [employer] EDMS Elizabeth Raygoza, PUPPY SITTER-C PUPPY SITTER-Ckb Grant Cotter, RN RN jb4 Xenia Mendoza, RN RN vc1 Montserrat Rodrigez rv1 Trey Solomon MD MD sp4 DALTON FLANAGAN RN RN dd2 Corrections: (The following items were deleted from the chart) 18:57 18:57 CBC+H.LAB.BRZ ordered. EDMS EDMS 18:57 18:57 COMPREHENSIVE METABOLIC PANEL+C.LAB.BRZ ordered. EDMS EDMS 18:57 18:57 LIPASE+C.LAB.BRZ ordered. EDMS EDMS 18:57 18:57 Urinalysis+U.LAB.BRZ ordered. EDMS EDMS 20:29 20:29 BLOOD CULTURE*+BA.LAB.BRZ ordered. EDMS EDMS 20:29 20:29 LACTATE+C.LAB.BRZ ordered. EDMS EDMS 20:29 20:29 PROTIME (+INR)+COAG.LAB.BRZ ordered. EDMS EDMS 20:29 20:29 PTT, ACTIVATED+COAG.LAB.BRZ ordered. EDMS EDMS 21:06 20:49 Karen Frances kb kb 21:52 20:49 Telemetry/MedSurg (Inpatient) kb vc1 21:52 20:49 kb vc1 23:05 21:52 [facility] ER HOLD vc1 vc1 23:05 21:52 ERHOLD- vc1 vc1 23:12 23:05 vc1 rv1
--- NOTE | 2024-04-04 20:50 | ER ---
Nurse's Notes [facility] Name: Prema Root Age: 64 yrs Sex: Female : 1960 Arrival Date: 04/04/2024 Time: 18:25 Bed 6 Private MD: Diagnosis: Diverticulitis of intestine, part unspecified, without perforation or abscess with bleeding Presentation: 04/04 18:47 Chief complaint: Patient states: Pt states was here this morning and dx with dd2 diverticulitis and prescribed medications and not working. C/o blood and mucus coming from rectum. Coronavirus screen: At this time, the client does not indicate any symptoms associated with coronavirus-19. Ebola Screen: No symptoms or risks identified at this time. Initial Sepsis Screen: Does the patient meet any 2 criteria? No. Patient's initial sepsis screen is negative. Does the patient have a suspected source of infection? No. Patient's initial sepsis screen is negative. Risk Assessment: Do you want to hurt yourself or someone else? Patient reports no desire to harm self or others. Onset of symptoms is unknown. 18:47 Method Of Arrival: Ambulatory dd2 18:47 Acuity: DEEPAK 3 dd2 Triage Assessment: 18:51 General: Appears in no apparent distress. Behavior is calm, cooperative. Pain: dd2 Complains of pain in abdomen. Historical: - Allergies: 18:51 Amoxicillin; dd2 18:51 Codeine; dd2 - PMHx: 18:51 Osteoporosis; Diverticulitis; dd2 - PSHx: 18:51 Cholecystectomy; LINX band; dd2 - Immunization history:: Adult Immunizations up to date. - Infectious Disease History:: Denies. - Social history:: Smoking status: Patient denies any tobacco usage or history of. Screenin/15 01:00 [facility] ED Fall Risk Assessment (Adult) History of falling in the last 3 months, jb4 including since admission No falls in past 3 months (0 pts) Confusion or Disorientation No (0 pts) Intoxicated or Sedated No (0 pts) Impaired Gait No (0 pts) Mobility Assist Device Used No (0 pt) Altered Elimination No (0 pt) Score/Fall Risk Level 0 - 2 = Low Risk Oriented to surroundings, Maintained a safe environment. Abuse screen: Denies threats or abuse. Nutritional screening: No deficits noted. Tuberculosis screening: No symptoms or risk factors identified. Assessment: 04/04 19:47 General: Appears in no apparent distress. comfortable, Behavior is calm, cooperative, jb4 appropriate for age. Pain: Complains of pain in abdomen Pain does not radiate. Pain currently is 7 out of 10 on a pain scale. Neuro: Level of Consciousness is awake, alert, obeys commands, Oriented to person, place, time, situation. Cardiovascular: Patient's skin is warm and dry. Respiratory: Airway is patent Respiratory effort is even, unlabored, Respiratory pattern is regular, symmetrical. GI: Abdomen is flat, non-distended, Reports blood streaked stool and mucus. : No signs and/or symptoms were reported regarding the genitourinary system. EENT: No signs and/or symptoms were reported regarding the EENT system. Derm: Skin is intact, Skin is pink, warm \T\ dry. Musculoskeletal: Circulation, motion, and sensation intact. Range of motion: intact in all extremities. 21:00 Reassessment: Patient appears in no apparent distress at this time. Patient and/or jb4 family updated on plan of care and expected duration. Pain level reassessed. Patient is alert, oriented x 3, equal unlabored respirations, skin warm/dry/pink. 22:00 Reassessment: Patient appears in no apparent distress at this time. Patient and/or jb4 family updated on plan of care and expected duration. Pain level reassessed. Patient is alert, oriented x 3, equal unlabored respirations, skin warm/dry/pink. 23:00 Reassessment: Patient appears in no apparent distress at this time. Patient and/or jb4 family updated on plan of care and expected duration. Pain level reassessed. Patient is alert, oriented x 3, equal unlabored respirations, skin warm/dry/pink. 04/05 00:00 Reassessment: Patient appears in no apparent distress at this time. Patient and/or jb4 family updated on plan of care and expected duration. Pain level reassessed. Patient is alert, oriented x 3, equal unlabored respirations, skin warm/dry/pink. 01:28 Reassessment: Patient appears in no apparent distress at this time. Patient and/or jb4 family updated on plan of care and expected duration. Pain level reassessed. Patient is alert, oriented x 3, equal unlabored respirations, skin warm/dry/pink. Vital Signs: 04/04 18:47 BP 135 / 66; Pulse 94; Resp 15; Temp 98.1; Pulse Ox 97% ; Weight 68.04 kg; Height 5 ft. dd2 2 in. ; 19:00 BP 134 / 68; Pulse 90; Resp 16; Pulse Ox 96% on R/A; jb4 21:42 BP 125 / 64; Pulse 84; Resp 16; Pulse Ox 97% on R/A; jb4 23:45 BP 92 / 61; Pulse 83; Resp 16; Pulse Ox 96% on R/A; jb4 04/05 00:01 BP 92 / 61; Pulse 88; Resp 16; Temp 100.7(O); Pulse Ox 97% on R/A; jb4 01:00 BP 118 / 54; Pulse 73; Resp 16; Pulse Ox 95% on R/A; jb4 04/04 18:47 Body Mass Index 27.44 (68.04 kg, 157.48 cm) dd2 ED Course: 04/04 18:47 Patient arrived in ED. mr 18:50 Triage completed. dd2 18:51 Arm band placed on right wrist. Patient placed in waiting room, Patient notified of dd2 wait time. 18:56 [facility] Ray[facility]-C [facility]. kb 18:56 Roel Holt MD is Attending Physician. kb 19:19 Inserted saline lock: 20 gauge in right antecubital area, using aseptic technique. oe Blood collected. Flushed with 10 mL NS. 19:28 Grant Cotter, BOO is Primary Nurse. jb4 19:32 Warm blanket given. oe 20:49 Karen Frances MD is Hospitalizing Provider. kb 21:06 Darius Thakkar MD is Hospitalizing Provider. kb 21:20 Inserted saline lock: 20 gauge in right forearm, using aseptic technique. jb4 22:04 Attending Physician role handed off by Roel Holt MD sp4 22:04 Trey Solomon MD is Attending Physician. sp4 22:25 EKG done, by ED staff, reviewed by Trey Solomon MD. oe 04/05 01:00 Patient has correct armband on for positive identification. Bed in low position. Call jb4 light in reach. Side rails up X 1. Provided Education on: need for admit. 01:00 No provider procedures requiring assistance completed. Patient admitted, IV remains in jb4 place. Administered Medications: 04/04 21:51 Drug: NS 0.9% IV 500 ml IV at bolus once Route: IV; Rate: bolus; Site: right forearm; jb4 21:51 Drug: metroNIDAZOLE IVPB 500 mg 100 ml IVPB at 200 ml/hr once over 30 mins; administer jb4 after blood cultures obtained Volume: 100 ml; Route: IVPB; Rate: 200 ml/hr; Infused Over: 30 mins; Site: right forearm; 21:52 Drug: Ciprofloxacin IVPB 400 mg 200 ml IVPB once over 60 mins; administer after blood jb4 cultures obtained Volume: 200 ml; Route: IVPB; Infused Over: 60 mins; Site: right antecubital; 04/05 00:01 Drug: Acetaminophen PO 1000 mg PO once Route: PO; jb4 Outcome: 04/04 20:49 Decision to Hospitalize by Provider. kb 04/05 01:31 Admitted to Med/surg accompanied by nurse, via wheelchair, room 218, with chart, jb4 Condition: stable Discharge instructions given to patient, Instructed on the need for admit, Demonstrated understanding of instructions, 01:31 Patient left the ED. jb4 Signatures: Elizabeth Raygoza, CERTIFIED PESTICIDE APPLICATOR-C CERTIFIED PESTICIDE APPLICATOR-CkMiriam Hernandez Reg Reg mr Bryson, James, RN RN jb4 Abdulkadir Jorge Sergey, MD MD sp4 DALTON FLANAGAN RN RN dd2 Corrections: (The following items were deleted from the chart) 04/04 18:54 18:51 Arm band placed on right wrist. Patient placed in an exam room, on a stretcher, dd2 on pulse oximetry, Patient notified of wait time dd2
--- NOTE | 2024-04-04 21:05 | P.HP ---
Certification for Inpatient Patient admitted to: Inpatient With expected LOS: <2 Midnights Practitioner: I am a practitioner with admitting privileges, knowledge of patient current condition, hospital course, and medical plan of care. Services: Services provided to patient in accordance with Admission requirements found in Title 42 Section 412.3 of the Code of Federal Regulations Patient History Date of Service: 04/05/24 Reason for admission: Diverticulitis History of Present Illness: 64-year-old female presents to the emergency room with abdominal pain. She was reports being seen in the emergency room, discharged home on p.o. antibiotics, return to the ER for worsening of abdominal pain, nausea vomiting, unable to tolerate p.o. intake. She reports lower quadrant abdominal pain started today. Has progressed throughout the day. She denies chest pain, shortness of breath, fever, recent infection. Plan to admit for diverticulitis, abdominal pain with nausea for IV antibiotics. ER course leukocytosis WBCs 12.90, early left shift 86.0, UA negative, CT of the abdomen pelvis IMPRESSION: Findings of acute uncomplicated distal sigmoid diverticulitis. Allergies amoxicillin Allergy (Verified 06/02/16 10:27) palpitations codeine Allergy (Verified 06/02/16 10:27) Nausea/Vomiting Home Medications: Bifidobacterium Infantis [Align] 4 mg PO DAILY 06/02/16 Multivitamin [Multivitamins] 1 each PO DAILY 06/02/16 Omeprazole [Prilosec] 40 mg PO DAILY 06/02/16 Promethazine Tab [Phenergan] 25 mg PO Q6HP PRN #10 tab 06/02/16 Ranitidine HCl [Zantac 75] 75 mg PO BEDTIME 06/02/16 Sulfamethoxazole/Trimethoprim [Bactrim Ds Tablet] 1 each PO BID #12 tablet 06/02/16 Tramadol HCl/Acetaminophen [Ultracet Tablet] 1 each PO Q4H PRN #30 tablet 06/02/16 - Past Medical/Surgical History -: Osteoporosis -: Diverticulitis -: Linx band reflux - Social History Alcohol use: No CD- Drugs: No Place of Residence: Home Review of Systems 10-point ROS is otherwise unremarkable Physical Examination - Physical Exam General: Alert, In no apparent distress, Oriented x3 HEENT: Atraumatic, Normocephalic Neck: 2+ carotid pulse no bruit, JVD not distended Respiratory: Clear to auscultation bilaterally, Normal air movement Cardiovascular: Normal pulses, Regular rate/rhythm, Normal S1 S2 Capillary refill: <2 Seconds Gastrointestinal: Other (Lower abdominal tenderness) Musculoskeletal: No swelling, No contractures Integumentary: No breakdown, No significant lesion Neurological: Normal speech, Normal strength at 5/5 x4 extr, Cranial nerves 3-12 intact - Studies Laboratory Data (last 24 hrs) 04/04/24 04/04/24 19:25 19:25 WBC 12.90 H Hgb 13.6 Hct 40.7 Plt Count 231 Sodium 138 Potassium 4.1 BUN 11 Creatinine 0.72 Glucose 129 H Total Bilirubin 0.6 AST 15 ALT 23 Alkaline Phosphatase 45 Lipase 30 Assessment and Plan - Plan Assessment plan Abdominal pain Acute diverticulitis GERD IV antibiotics, IV fluids, as needed analgesics, as needed antiemetic Advance diet as tolerated UA normal Full code DVT SCDs Diet clear liquids advance as tolerated Disposition Home independent prior Discharge Plan: Home - Advance Directives Does patient have a Living Will: No Does patient have a Durable POA for Healthcare: No - Code Status/Comfort Care Code Status: Full Code Critical Care: No Time Spent Managing Pts Care (In Minutes): 55
[2024-04-04 21:41] LABS: Blood Morphology Comment NOTED (NOT SEEN); Hypochromasia 1+; Platelet Estimate ADEQ; White Blood Cell Scan OK (OK)
[2024-04-04] MEDS ORDERED: CIPROFLOXACIN 400mg IV 400 MG/200 ML BAG IV ONE (21:41)
[2024-04-04] MEDS ORDERED: NA CHLORIDE 0.9% 500 ML ONE (21:41)
[2024-04-04] MEDS ORDERED: METRONIDAZOLE 500mg IVPB 500 MG/100 ML BAG IV ONE (21:42)
[2024-04-04 21:59] LABS: Protime INR 1.07
[2024-04-04] MEDS: NA CHLORIDE 0.9% 1,000 ML IV SCH (22:00)
[2024-04-04] MEDS ORDERED: ACETAMINOPHEN 500 MG TAB ONE (23:55)
[2024-04-05] MEDS: METRONIDAZOLE 500mg IVPB 500 MG/100 ML BAG IV SCH ×2 (01:00→05:22)
[2024-04-05 02:35] VITALS: BMI 27.1
[2024-04-05 04:43] LABS: Absolute Lymphocytes (CBC) 1.9 K/uL (0.7-4.9); Absolute Monocytes 0.7 K/uL (0.1-1.3); Basophils % 0.2 % (0-1.3); Eosinophils % 0.1 % (0-4.4); Hematocrit 37.2 % (36.0-45.0); Hemoglobin 12.2 g/dL (12.0-15.0); Lymphocytes % 16.3 % (15.3-44.8); MCH 31.4 pg (27.0-35.0); MCHC 32.9 g/dL (32.0-36.0); MCV 95.7 fL (80-100); MPV 8.7 fL (7.6-11.3); Monocytes % 6.1 % (3.3-12.3); Neutrophils % 77.3 % (41.7-73.7); Platelets 179 thou/uL (152-406); RBC Red Blood Cell Count 3.88 M/uL (3.86-4.86); Red Cell Distribution Width 13.2 % (12.1-15.2)
[2024-04-05 04:55] LABS: Anion Gap 6.8 mEq/L (5.0-15.0); Potassium 3.8 mEq/L (3.5-5.1)
[2024-04-05] MEDS: KETOROLAC 30 MG/ML INJ IV PRN (05:13)
[2024-04-05] MEDS: ONDANSETRON 4 MG/2 ML VIAL IV PRN (05:14)
--- NOTE | 2024-04-05 07:02 | P.PN ---
Date of Service: 04/05/24 Subjective: feeling better today reports having [place] [address] Mi and was told it was fine abdominal pain slowly improving 100.7 temp overnight ROS: 10 point ROS as noted above, otherwise negative Physical Exam: GEN: Alert, oriented, NAD HEENT: Normal conjunctiva, sclera anicteric CV: Regular rate and rhythm, no edema Pulm: Nonlabored respirations on room air, clear bilaterally ABD: Soft, mild-moderate Lower abdominal tenderness, nondistended vitals reviewed Problem List: Acute sigmoid diverticulitis, possible microperforation GERD s/p LINX device Presents with worsening abdominal pain, nausea/vomiting, inability to tolerate PO intake that started day of admission. Had colonscopy [place] [address] Mi and was told it was fine per patient will need repeat colonoscopy as outpatient to reeval once acute episode resolves CT abdomen (04/04): acute distal sigmoid diverticulitis. +tiny locule of intramural air vs gas within a small diverticulum seen along the inferior wall. Dr. De Jesus, general surgeon consulted to eval blood in stool - "speckles", improving continue empiric IV cipro / flagyl (04/05-) follow blood cultures bowel rest, pain control continue IV fluids PRN zofran VTE: SCD Code: Full Dispo: Home, ~1-2 days pending nausea/vomiting resolve, abd pain improves, able to tolerate PO intake surgery recs Time Spent Managing Pts Care (In Minutes): 39
[2024-04-05] MEDS: D5.45NS W/KCL 20MEQ 20 MEQ/1,000 ML BAG IV SCH (09:06)
[2024-04-05] MEDS: CIPROFLOXACIN 400mg IV 400 MG/200 ML BAG IV SCH (09:06)
[2024-04-06 05:15] LABS: Absolute Eosinophils 0.1 K/uL (0-0.5); Absolute Lymphocytes (CBC) 1.5 K/uL (0.7-4.9); Absolute Monocytes 0.6 K/uL (0.1-1.3); Absolute Neutrophil 4.4 K/uL (1.8-8.0); Basophils % 0.7 % (0-1.3); Eosinophils % 1.2 % (0-4.4); Hematocrit 35.8 % (36.0-45.0); Hemoglobin 11.9 g/dL (12.0-15.0); Lymphocytes % 22.1 % (15.3-44.8); MCH 31.6 pg (27.0-35.0); MCHC 33.1 g/dL (32.0-36.0); MCV 95.6 fL (80-100); Platelets 165 thou/uL (152-406); RBC Red Blood Cell Count 3.75 M/uL (3.86-4.86); Red Cell Distribution Width 13.2 % (12.1-15.2)
[2024-04-06 05:21] LABS: Anion Gap 5.4 mEq/L (5.0-15.0); Potassium 4.4 mEq/L (3.5-5.1)
--- NOTE | 2024-04-06 08:24 | P.PN ---
Date of Service: 04/06/24 Subjective: Feeling better today abdominal pain continues to improve daily; not as sore had BM this morning. Reports having more form denies blood or speckles in stool today afebrile ROS: 10 point ROS as noted above, otherwise negative Physical Exam: GEN: Alert, oriented, NAD HEENT: Normal conjunctiva, sclera anicteric CV: Regular rate and rhythm, no edema Pulm: Nonlabored respirations on room air, clear bilaterally ABD: Soft, mild Lower abdominal tenderness, nondistended vitals reviewed Problem List: Acute sigmoid diverticulitis, possible microperforation GERD s/p LINX device Presents with worsening abdominal pain, nausea/vomiting, inability to tolerate PO intake that started day of admission. Had colonscopy [place] [address] Mi and was told it was fine per patient will need repeat colonoscopy as outpatient to reeval once acute episode resolves CT abdomen (04/04): acute distal sigmoid diverticulitis. +tiny locule of intramural air vs gas within a small diverticulum seen along the inferior wall. Dr. De Jesus, general surgeon consulted to eval blood in stool - "speckles", resolved continue empiric IV cipro / flagyl (04/05-) follow blood cultures pain control continue IV fluids probiotic added (04/06) clear liquids for lunch; advance as tolerated VTE: SCD Code: Full Dispo: Home, ~1 day pending surgery recs / tolerating diet without issues Time Spent Managing Pts Care (In Minutes): 39
[2024-04-06] MEDS: LACTOBACILLUS/ACIDOPHILUS TAB PO SCH (09:15)
--- NOTE | 2024-04-06 15:55 | P.CNS ---
Date of Consult: 04/05/24 Chief Complaint: Diverticulitis History of Present Illness: 64 y/o with one day hx of abd pain, bloating. Pt has hx bariatric surgery and last colonoscopy neg as pe pt about a year ago. Allergies amoxicillin Allergy (Verified 04/05/24 01:50) palpitations codeine Allergy (Verified 04/05/24 01:50) Nausea/Vomiting gluten Allergy (Verified 04/05/24 01:50) Nausea/Vomiting lactose Allergy (Verified 04/05/24 01:50) Nausea/Vomiting Home Medications: Multivitamin [Multivitamins] 1 each PO DAILY 06/02/16 - Past Medical/Surgical History Diabetic: No -: Osteoporosis -: Diverticulitis -: Linx band reflux -: cataract sx - Family History Mother Medical History: Cancer Notes: liver cancer Father Notes: Malaria - Social History Alcohol use: No CD- Drugs: No Caffeine use: No Place of Residence: Home Review of Systems General: As per HPI Eyes: Unremarkable ENT: Unremarkable Respiratory: Unremarkable Cardiovascular: Unremarkable Gastrointestinal: Nausea, Abdominal Pain, Distention, Constipation (no), Melena (no), Hematochezia (no), As per HPI Genitourinary: Unremarkable Neurological: Unremarkable Physical Examination Temp Pulse Resp BP Pulse Ox 97.6 F 67 16 126/56 L 96 04/06/24 12:00 04/06/24 12:00 04/06/24 12:00 04/06/24 12:00 04/06/24 12:00 General: Alert, In no apparent distress, Oriented x3, Cooperative HEENT: Normocephalic, PERRLA Neck: Supple Respiratory: Normal air movement Cardiovascular: No edema Gastrointestinal: No rebound, No guarding, Tenderness (LLQ mild) Musculoskeletal: No erythema, No tenderness, No warmth Integumentary: No rashes, No breakdown Neurological: Normal speech Conclusions/Impression: bowel rest IV abx
--- NOTE | 2024-04-06 15:56 | P.PN ---
Subjective Date of Service: 04/06/24 Chief Complaint: Diverticulitis Subjective: Ambulating, Improving Review of Systems Respiratory: Unremarkable Cardiovascular: Unremarkable Genitourinary: Unremarkable Integumentary: Unremarkable Physical Examination - Vital Signs Temperature: 97.6 F Blood Pressure: 126/56 Pulse: 67 Respirations: 16 Pulse Ox (%): 96 - Physical Exam General: Alert, In no apparent distress, Oriented x3, Cooperative HEENT: Normocephalic, PERRLA Neck: Supple Respiratory: Normal air movement Cardiovascular: No edema Gastrointestinal: Soft and benign, No rebound, No guarding Musculoskeletal: No erythema, No tenderness, No warmth Assessment And Plan - Plan abd xRay in am liquid advance to full OOB IV abx
[2024-04-07 06:28] LABS: Absolute Lymphocytes (CBC) 0.5 K/uL (0.7-4.9); Absolute Monocytes 0.4 K/uL (0.1-1.3); Absolute Neutrophil 3.7 K/uL (1.8-8.0); Basophils % 0.6 % (0-1.3); Eosinophils % 0.8 % (0-4.4); Hematocrit 36.2 % (36.0-45.0); Hemoglobin 12.2 g/dL (12.0-15.0); Lymphocytes % 10.5 % (15.3-44.8); MCH 31.7 pg (27.0-35.0); MCHC 33.6 g/dL (32.0-36.0); MCV 94.2 fL (80-100); MPV 8.3 fL (7.6-11.3); Monocytes % 9.2 % (3.3-12.3); Neutrophils % 78.9 % (41.7-73.7); Platelets 186 thou/uL (152-406); RBC Red Blood Cell Count 3.84 M/uL (3.86-4.86); Red Cell Distribution Width 13.2 % (12.1-15.2)
[2024-04-07 06:46] LABS: Anion Gap 6.6 mEq/L (5.0-15.0); Magnesium 2.1 mg/dL (1.6-2.4); Potassium 4.6 mEq/L (3.5-5.1)
--- NOTE | 2024-04-07 08:34 | RAD REPORT ---
EXAM DESCRIPTION: RAD - Abdomen W Erect - 04/07/2024 6:04 am CLINICAL HISTORY: f/u diverticulitis findings COMPARISON: Abdomen Pelvis W Contrast dated 04/04/2024 FINDINGS: The bowel gas pattern is nonobstructive. Surgical clips in right upper quadrant. Lung base s are clear. Gastric band. Surgical clips in right upper quadrant. No free air identified. IMPRESSION: Nonobstructive bowel gas pattern. No free air appreciated.
--- NOTE | 2024-04-07 09:23 | P.PN ---
Date of Service: 04/07/24 Subjective: ROS: 10 point ROS as noted above, otherwise negative Physical Exam: GEN: Alert, oriented, NAD HEENT: Normal conjunctiva, sclera anicteric CV: Regular rate and rhythm, no edema Pulm: Nonlabored respirations on room air, clear bilaterally ABD: Soft, mild Lower abdominal tenderness, nondistended vitals reviewed Problem List: Acute sigmoid diverticulitis, possible microperforation GERD s/p LINX device Presents with worsening abdominal pain, nausea/vomiting, inability to tolerate PO intake that started day of admission. Had colonscopy [place] [address] Mi and was told it was fine per patient will need repeat colonoscopy as outpatient to reeval once acute episode resolves CT abdomen (04/04): acute distal sigmoid diverticulitis. +tiny locule of intramural air vs gas within a small diverticulum seen along the inferior wall. xray abdomen (04/07): nonobstructive bowel gas pattern. No free air. Dr. De Jesus, general surgeon consulted to eval blood in stool - "speckles", resolved continue empiric IV cipro / flagyl (04/05-) follow blood cultures - NGTD pain control probiotic added (04/06) advanced to full liquids 04/07 IVF dc'd 04/06 VTE: SCD Code: Full Dispo: Home, ~1 day pending surgery recs / tolerating diet without issues Time Spent Managing Pts Care (In Minutes): 39
[2024-04-07 10:32] VITALS: O2SAT 98
--- NOTE | 2024-04-07 10:58 | P.DS ---
Admission Date: 04/04/24 Discharge Date: 04/07/24 Reason for Admission: Diverticulitis Consultations: General surgery - Dr. De Jesus Brief History of Present Illness: 64yo F, PMH: hx GERD s/p LINX device Patient presents to the emergency room with abdominal pain. She was reports being seen in the emergency room, discharged home on p.o. antibiotics, return to the ER for worsening of abdominal pain, nausea vomiting, unable to tolerate p.o. intake. She reports lower quadrant abdominal pain started today. Has progressed throughout the day. She denies chest pain, shortness of breath, fever, recent infection. Plan to admit for diverticulitis, abdominal pain with nausea for IV antibiotics. ER course leukocytosis WBCs 12.90, early left shift 86.0, UA negative, CT of the abdomen pelvis IMPRESSION: Findings of acute uncomplicated distal sigmoid di verticulitis. Hospital Course: Problem List: Acute sigmoid diverticulitis, possible microperforation GERD s/p LINX device Physician discharge instructions: Patient presented with lower abdominal pain, nausea, vomiting. She was found to have acute sigmoid diverticulitis with possible microperforation (vs intraluminal gas within diverticula), seen on CT imaging. Patient was evaluated by Dr. De Jesus, general surgeon, who recommended medical management with bowel rest, antibiotics, pain control. No evidence to warrant surgical intervention at this time. Her diet was slowly advanced and patient continued to have improvement. She was able to tolerable full liquid diet on day of discharge without issues. Patient was feeling better, abdominal pain improving, nausea/vomiting improved, and was deemed stable for discharge. Patient received ~3 days of empiric ciprofloxacin and flagyl while hospitalized and had improvement of her symptoms. No new antibiotic prescriptions on discharge. Finish ~9 day course of recently prescribed ciprofloxacin / flagyl as previously discussed. Continue a low fiber, soft food diet for the next 1-2 weeks until you see by Dr. De Jesus at follow up appointment. Advised to follow up with Dr. De Jesus in office for further management in the next 1-2 weeks. Consider repeat colonoscopy in the next few months once acute episode resolves to re-evaluate. Medications: Ciprofloxacin and flagyl for ~9 more days. Complete recently picked up prescription. No new prescription. zofran as needed for nausea avoid laxatives for the next 1-2 weeks Follow up: PCP 3-[address] De Jesus in office in ~1 week Physical Exam: GEN: Alert, oriented, NAD HEENT: Normal conjunctiva, sclera anicteric CV: Regular rate and rhythm, no edema Pulm: Nonlabored respirations on room air, clear bilaterally ABD: Soft, no tenderness, nondistended Neuro: normal speech, normal strength Vital Signs/Physical Exam: Temp Pulse Resp BP Pulse Ox 99.0 F 84 12 127/61 98 04/07/24 08:00 04/07/24 08:00 04/07/24 08:00 04/07/24 08:00 04/07/24 08:00 Laboratory Data at Discharge: WBC 4.70 thou/uL (4.3-10.9) 04/07/24 06:07 Hgb 12.2 g/dL (12.0-15.0) 04/07/24 06:07 Hct 36.2 % (36.0-45.0) 04/07/24 06:07 Plt Count 186 thou/uL (152-406) 04/07/24 06:07 PT 12.0 SECONDS (9.4-12.5) 04/04/24 21:20 INR 1.07 04/04/24 21:20 APTT 28.0 SECONDS (24.3-36.9) 04/04/24 21:20 Sodium 138 mEq/L (136-145) 04/07/24 06:07 Potassium 4.6 mEq/L (3.5-5.1) 04/07/24 06:07 BUN 4 mg/dL (7-18) L 04/07/24 06:07 Creatinine 0.64 mg/dL (0.55-1.02) 04/07/24 06:07 Glucose 125 mg/dL (74-106) H 04/07/24 06:07 Magnesium 2.1 mg/dL (1.6-2.4) 04/07/24 06:07 Total Bilirubin 0.6 mg/dL (0.2-1.0) 04/04/24 19:25 AST 15 U/L (15-37) 04/04/24 19:25 ALT 23 U/L (13-56) 04/04/24 19:25 Alkaline Phosphatase 45 U/L (45-117) 04/04/24 19:25 Lipase 30 U/L (13-75) 04/04/24 19:25 Home Medications: Multivitamin [Multivitamins] 1 each PO DAILY 06/02/16 Ondansetron [Zofran] 4 mg PO Q8H PRN #15 tab 04/07/24 New Medications: Ondansetron [Zofran] 4 mg PO Q8H PRN #15 tab PRN Reason: Nausea / Vomiting Physician Discharge Instructions: Physician discharge instructions: Patient presented with lower abdominal pain, nausea, vomiting. She was found to have acute sigmoid diverticulitis with possible microperforation (vs intral uminal gas within diverticula), seen on CT imaging. Patient was evaluated by Dr. De Jesus, general surgeon, who recommended medical management with bowel rest, antibiotics, pain control. No evidence to warrant surgical intervention at this time. Her diet was slowly advanced and patient continued to have improvement. She was able to tolerable full liquid diet on day of discharge without issues. Patient was feeling better, abdominal pain improving, nausea/vomiting improved, and was deemed stable for discharge. Patient received ~3 days of empiric ciprofloxacin and flagyl while hospitalized and had improvement of her symptoms. No new antibiotic prescriptions on discharge. Finish ~9 day course of recently prescribed ciprofloxacin / flagyl as previously discussed. Continue a low fiber, soft food diet for the next 1-2 weeks until you see by Dr. De Jesus at follow up appointment. Advised to follow up with Dr. De Jesus in office for further management in the next 1-2 weeks. Consider repeat colonoscopy in the next few months once acute episode resolves to re-evaluate. Medications: Ciprofloxacin and flagyl for ~9 more days. Complete recently picked up prescr iption. No new prescription. zofran as needed for nausea avoid laxatives for the next 1-2 weeks Follow up: PCP 3-[address] De Jesus in office in ~1 week Followup: Mckinley Hayes DO, DO [Primary Care Provider] - Time spent managing pt's care (in minutes): 45
[2024-04-07 12:16] VITALS: BP 134/60; TEMP 99.3
--- NOTE | 2024-04-10 18:06 | EKG ---
Test Date: 2024-04-04 Test Time: 22:15:17 Gravel Wheeler: NICHOLE MEASUREMENT RESULTS: Intervals: Rate: 84 TX: 154 QRSD: 90 QT: 374 QTc: 441 [place]: P: 67 TX: 154 QRS: 82 T: 115 INTERPRETIVE STATEMENTS: Normal sinus rhythm Normal ECG Compared to ECG 05/25/2016 06:36:49 No significant changes Electronically Signed On 04-10-24 17:53:24 CDT by Ajith Nassar
== END 2024-04-07 12:33 | disposition home or self-care (01) | DRG 379 ==
LOC: ER 18:25 → ERHOLD 21:00 → 2ND 04-05 00:25
PROVIDERS: ADMIT Hospitalist; ATTEND Hospitalist
DX: K57.21 Diverticulitis of large intestine with perforation and abscess with bleeding (principal); K21.9 Gastro-esophageal reflux disease without esophagitis; R11.2 Nausea with vomiting, unspecified; M81.0 Age-related osteoporosis without current pathological fracture; Z98.890 Other specified postprocedural states; Z98.84 Bariatric surgery status; Z79.899 Other long term (current) drug therapy; Z90.49 Acquired absence of other specified parts of digestive tract; Z88.0 Allergy status to penicillin; Z88.5 Allergy status to narcotic agent; Z91.011 Allergy to milk products; Z91.09 Other allergy status, other than to drugs and biological substances; Z80.0 Family history of malignant neoplasm of digestive organs
CPT/HCPCS: 36415; 74019; 74177; 80048; 80053; 81001; 83605; 83690; 83735; 85025; 85610; 85730; 87040; 93005; 96360; 99284; 99285; J0744; J2405; J7030; J7040; Q9967

== ENCOUNTER 2025-06-12 09:14 | Emergency (ER) | payer OTHER ==
[2025-06-12] MEDS ORDERED: ACETAMINOPHEN 325 MG TABLET ONE (09:31)
--- NOTE | 2025-06-12 09:47 | RAD REPORT ---
EXAMINATION: Head C Spine Mpr Wo Con CLINICAL INDICATION: Female, 65 years old. TRAUMA TECHNIQUE: Axial CT images from the skull base to the vertex without intravenous contrast. Axial CT i mages through the cervical spine were obtained without intravenous contrast. Sagittal and coronal reformatted images were created from the data set. Coronal and sagittal reformatted images were creat ed from the data set. One or more of the following dose reduction techniques were used: Automated exposure control, adjustment of the mA and/or kV according to patient size, and/or iterative reconstr uction. Unless otherwise specified, incidental findings do not require dedicated imaging follow-up. [id number]. COMPARISON: No prior exams FINDINGS: Head: INTRACRANIAL: No acute intracranial hemorrhage. No acute large vascular territory infarct. No hydro cephalus. No mass effect or midline shift. No significant white matter disease. VASCULATURE: No visualized abnormalities in the arteries or dural venous sinuses. SCALP/SKULL: No calvarial fracture identified. No acute soft tissue abnormality. SINUSES: The visualized paranasal sinuses are mostly clear. No significant mastoid fluid. Cervical spine: ALIGNMENT: The cervical spine has normal alignment without scoliosis or spondylolisthesis. BONE: Vertebral body heights are maintained. No aggressive osseous lesions. DEGENERATIVE: Multilevel cervical spondylosis with evidence of bilateral neural foraminal narrowing. No high grade central spinal stenosis. SOFT TISSUE: No significant abnormalities in the soft tissue of the neck. The visualized lung apices are clear. IMPRESSION: No acute intracranial abnormality. No acute fracture or traumatic malalignment of the cervical spine.
--- NOTE | 2025-06-12 10:09 | RAD REPORT ---
EXAM: Knee Right 3 View INDICATION: PAIN COMPARISON: None FINDINGS: No acute fracture. No significant knee effusion. No significant focal degenerative changes. Other: N/A IMPRESSION: No acute osseous abnormality involving the imaged knee.
--- NOTE | 2025-06-12 10:12 | RAD REPORT ---
EXAM: Knee Left 3 View INDICATION: PAIN COMPARISON: None FINDINGS: No acute fracture. No significant knee effusion. No significant focal degenerative changes. Other: N/A IMPRESSION: No acute osseous abnormality involving the imaged knee.
--- NOTE | 2025-06-12 11:20 | ER ---
Nurse's Notes [facility] Name: Prema Root Age: 65 yrs Sex: Female : 1960 Arrival Date: 06/12/2025 Time: 09:14 Bed 8 Private MD: Diagnosis: Fall on same level, unspecified;Contusion of left knee;Contusion of right knee;Contusion of other part of head-hematoma Presentation: 06/12 09:25 Chief complaint: Patient states: MECHANICAL FALL THIS AM OVER CORD, STRIKE TO R FRONTAL bp AND BILATERAL KNEES, NO LOC. Coronavirus screen: At this time, the client does not indicate any symptoms associated with coronavirus-19. Ebola Screen: No symptoms or risks identified at this time. Initial Sepsis Screen: Does the patient meet any 2 criteria? No. Patient's initial sepsis screen is negative. Does the patient have a suspected source of infection? No. Patient's initial sepsis screen is negative. Risk Assessment: Do you want to hurt yourself or someone else? Patient reports no desire to harm self or others. Onset of symptoms was June 12, 2025 at 08:30. 09:25 Method Of Arrival: Ambulatory bp 09:25 Acuity: DEEPAK 3 bp Triage Assessment: 09:26 General: Appears in no apparent distress. Behavior is cooperative, appropriate for age, bp anxious. Pain: Complains of pain in forehead. EENT: No deficits noted. Neuro: No deficits noted. Cardiovascular: No deficits noted. Respiratory: No deficits noted. GI: No signs and/or symptoms were reported involving the gastrointestinal system. : No signs and/or symptoms were reported regarding the genitourinary system. Derm: No deficits noted. Musculoskeletal: No deficits noted. Historical: - Allergies: 09:26 Amoxicillin; bp 09:26 Codeine; bp - PMHx: 09:26 Diverticulitis; Osteoporosis; bp - PSHx: 09:26 Cholecystectomy; Linx Band; bp - Immunization history:: Adult Immunizations up to date. - Infectious Disease History:: Denies. - Social history:: Smoking status: Patient denies any tobacco usage or history of. - Family history:: not pertinent. Screenin:37 [facility] ED Fall Risk Assessment (Adult) History of falling in the last 3 months, zm including since admission Yes- single mechanical fall (1 pt) Confusion or Disorientation No (0 pts) Intoxicated or Sedated No (0 pts) Impaired Gait No (0 pts) Mobility Assist Device Used No (0 pt) Altered Elimination No (0 pt) Score/Fall Risk Level 0 - 2 = Low Risk Oriented to surroundings, Maintained a safe environment, Educated pt \T\ family on fall prevention, incl call for assistance when getting out of bed, Assessed \T\ reinforced patient's understanding of fall precautions, Hourly rounding (assess needs \T\ fall precautionary measures) done, Used ambulatory aids as needed (educated on \T\ assisted with), Used gait belt as appropriate. Abuse screen: Denies threats or abuse. Denies injuries from another. Nutritional screening: No deficits noted. Tuberculosis screening: No symptoms or risk factors identified. Assessment: 10:00 General: Appears in no apparent distress. uncomfortable, Behavior is calm, cooperative. zm Pain: Complains of pain in forehead and right knee Pain currently is 4 out of 10 on a pain scale. Neuro: Level of Consciousness is awake, alert, obeys commands, Oriented to person, place, time, situation. Cardiovascular: Heart tones S1 S2 present Capillary refill < 3 seconds in bilateral fingers Patient's skin is warm and dry. Respiratory: Airway is patent Respiratory effort is even, unlabored, Respiratory pattern is regular, symmetrical, Breath sounds are clear bilaterally. Musculoskeletal: Circulation, motion, and sensation intact. Range of motion: limited in right knee. Injury Description: Abrasion sustained to right knee is not bleeding, clean Bruise sustained to forehead and right rastafari is red, purple. 11:42 Reassessment: Patient appears in no apparent distress at this time. Patient and/or km10 family updated on plan of care and expected duration. Pain level reassessed. Patient is alert, oriented x 3, equal unlabored respirations, skin warm/dry/pink. Patient states feeling better. Vital Signs: 09:25 BP 160 / 78; Pulse 86; Resp 16; Temp 98; Pulse Ox 100% ; bp 10:40 BP 143 / 73; Pulse 74; Resp 18; Temp 97.3; Pulse Ox 100% on R/A; Pain 4/10; zm 11:42 BP 131 / 71; Pulse 70; Resp 16; Pulse Ox 100% on R/A; km10 10:40 Pain Scale: Adult zm [place] Coma Score: 10:15 Eye Response: spontaneous(4). Motor Response: obeys commands(6). Verbal Response: zm oriented(5). Total: 15. 11:16 Eye Response: spontaneous(4). Motor Response: obeys commands(6). Verbal Response: diana oriented(5). Total: 15. ED Course: 09:17 Patient arrived in ED. cj3 09:23 Roel Holt MD is Attending Physician. diana 09:26 Triage completed. bp 09:26 Arm band placed on. bp 09:30 Sarah De Jesus, RN is Primary Nurse. zm 09:34 CT Head C Spine In Process Unspecified. EDMS 09:48 Knee Left 3 View XRAY In Process Unspecified. EDMS 09:48 Knee Right 3 View XRAY In Process Unspecified. EDMS 10:15 Patient has correct armband on for positive identification. Bed in low position. Call zm light in reach. Side rails up X 1. Adult w/ patient. Provided Education on: call light use . 10:15 Client placed on continuous cardiac and pulse oximetry monitoring. NIBP monitoring zm applied. Door closed. Noise minimized. Lights dimmed. Warm blanket given. Verbal reassurance given. 10:15 Wound care: ice pack applied. Patient tolerated well. zm 10:39 No provider procedures requiring assistance completed. zm 11:43 Patient did not have IV access during this emergency room visit. km10 Administered Medications: 10:34 Drug: Acetaminophen PO 650 mg PO once Route: PO; zm 11:44 Follow up: Response: No adverse reaction km10 Medication: 10:15 VIS not applicable for this client. Outcome: 11:20 Discharge ordered by . diana 11:43 Discharged to home ambulatory, with friend, contra [facility] 11:43 Condition: stable 11:43 Discharge instructions given to patient, Instructed on discharge instructions, follow up and referral plans. medication usage, Demonstrated understanding of instructions, follow-up care, medications, Prescriptions given X 1, 11:43 Patient left the ED. km10 Signatures: Dispatcher [employer] Roel Hale MD MD cha Peltier, Brian, RN RN bp Martinez, Zaina, RN RN zm Johnson, Celeste 3 Dot Manriquez RN RN km10
--- NOTE | 2025-06-12 11:20 | EDPHYS ---
Physician Documentation [facility] Name: Prema Root Age: 65 yrs Sex: Female : 1960 Arrival Date: 06/12/2025 Time: 09:14 Bed 8 Private MD: ED Physician Roel Holt HPI: 06/12 11:16 This 65 yrs old Female presents to ER via Ambulatory with complaints of Fall diana Injury - HEAD, KNEES. 11:16 Details of fall: The patient fell from an upright position, while walking. Onset: The diana symptoms/episode began/occurred just prior to arrival. Associated injuries: The patient sustained injury to the head, right leg and left leg, decreased range of motion, hematoma, painful injury, swelling. Severity of symptoms: At their worst the symptoms were mild, in the emergency department the symptoms have improved, mildly. The patient has experienced similar episodes in the past, a few times. Historical: - Allergies: 09:26 Amoxicillin; bp 09:26 Codeine; bp - PMHx: 09:26 Diverticulitis; Osteoporosis; bp - PSHx: 09:26 Cholecystectomy; Linx Band; bp - Immunization history:: Adult Immunizations up to date. - Infectious Disease History:: Denies. - Social history:: Smoking status: Patient denies any tobacco usage or history of. - Family history:: not pertinent. ROS: 11:16 Constitutional: Negative for fever, chills, and weight loss, Eyes: Negative for injury, diana pain, redness, and discharge, ENT: Negative for injury, pain, and discharge, Neck: Negative for injury, pain, and swelling, Cardiovascular: Negative for chest pain, palpitations, and edema, Respiratory: Negative for shortness of breath, cough, wheezing, and pleuritic chest pain, Abdomen/GI: Negative for abdominal pain, nausea, vomiting, diarrhea, and constipation, Back: Negative for injury and pain, : Negative for injury, bleeding, discharge, and swelling, Skin: Negative for injury, rash, and discoloration, Psych: Negative for depression, anxiety, suicide ideation, homicidal ideation, and hallucinations, Allergy/Immunology: Negative for hives, rash, and allergies, Endocrine: Negative for neck swelling, polydipsia, polyuria, polyphagia, and marked weight changes, Hematologic/Lymphatic: Negative for swollen nodes, abnormal bleeding, and unusual bruising, 11:16 MS/extremity: Positive for injury or acute deformity, pain, swelling, tenderness, of the right leg and left leg, Exam: 11:16 Constitutional: This is a well developed, well nourished patient who is awake, alert, diana and in no acute distress. Head/Face: Normocephalic, atraumatic. Eyes: Pupils equal round and reactive to light, extra-ocular motions intact. Lids and lashes normal. Conjunctiva and sclera are non-icteric and not injected. Cornea within normal limits. Periorbital areas with no swelling, redness, or edema. ENT: Nares patent. No nasal discharge, no septal abnormalities noted. Tympanic membranes are normal and external auditory canals are clear. Oropharynx with no redness, swelling, or masses, exudates, or evidence of obstruction, uvula midline. Mucous membranes moist. Neck: Trachea midline, no thyromegaly or masses palpated, and no cervical lymphadenopathy. Supple, full range of motion without nuchal rigidity, or vertebral point tenderness. No Meningismus. Chest/axilla: Normal chest wall appearance and motion. Nontender with no deformity. No lesions are appreciated. Cardiovascular: Regular rate and rhythm with a normal S1 and S2. No gallops, murmurs, or rubs. Normal PMI, no JVD. No pulse deficits. Respiratory: Lungs have equal breath sounds bilaterally, clear to auscultation and percussion. No rales, rhonchi or wheezes noted. No increased work of breathing, no retractions or nasal flaring. Abdomen/GI: Soft, non-tender, with normal bowel sounds. No distension or tympany. No guarding or rebound. No evidence of tenderness throughout. Back: No spinal tenderness. No costovertebral tenderness. Full range of motion. Female : Normal external genitalia. Skin: Warm, dry with normal turgor. Normal color with no rashes, no lesions, and no evidence of cellulitis. Neuro: Awake and alert, GCS 15, oriented to person, place, time, and situation. Cranial nerves II-XII grossly intact. Motor strength 5/5 in all extremities. Sensory grossly intact. Cerebellar exam normal. Normal gait. Psych: Awake, alert, with orientation to person, place and time. Behavior, mood, and affect are within normal limits. 11:16 Musculoskeletal/extremity: ROM: limited active range of motion due to pain, limited passive range of motion due to pain, Circulation is intact in all extremities. Sensation intact. Compartment Syndrome exam of affected extremity: is normal. Weight bearing: able to fully bear weight, DVT Exam: negative Homans' sign noted on exam, no appreciated bluish discoloration, no erythema, no increased warmth, pain, swelling, tenderness, Vital Signs: 09:25 BP 160 / 78; Pulse 86; Resp 16; Temp 98; Pulse Ox 100% ; bp 10:40 BP 143 / 73; Pulse 74; Resp 18; Temp 97.3; Pulse Ox 100% on R/A; Pain 4/10; zm 11:42 BP 131 / 71; Pulse 70; Resp 16; Pulse Ox 100% on R/A; km10 10:40 Pain Scale: Adult zm [place] Coma Score: 10:15 Eye Response: spontaneous(4). Motor Response: obeys commands(6). Verbal Response: zm oriented(5). Total: 15. 11:16 Eye Response: spontaneous(4). Motor Response: obeys commands(6). Verbal Response: diana oriented(5). Total: 15. MDM: 09:23 Medical Screening Exam initiated diana 11:19 Differential diagnosis: abrasion, closed head injury, contusion, fracture, multiple diana trauma, sprain, strain. Data reviewed: vital signs, nurses notes, radiologic studies, CT scan, plain films. Consideration of Admission/Observation Escalation of care including admission/observation considered. I considered the following discharge prescriptions or medication management in the emergency department Medications were administered in the Emergency Department. See MAR. Independent interpretation of the following test(s) in the Emergency Department CT Scan: My interpretation is ct head/c spine. 06/12 09:24 Order name: CT Head C Spine; Complete Time: 10:57 diana 06/12 09:24 Order name: Knee Left 3 View XRAY; Complete Time: 10:57 diana 06/12 09:24 Order name: Knee Right 3 View XRAY; Complete Time: 10:57 diana 06/12 09:24 Order name: Ice pack; Complete Time: 09:28 [facility] Administered Medications: 10:34 Drug: Acetaminophen PO 650 mg PO once Route: PO; zm 11:44 Follow up: Response: No adverse reaction km10 Disposition Summary: 06/12/25 11:20 Discharge Ordered Notes: Location: Home diana Problem: new diana Symptoms: have improved diana Condition: Stable diana Diagnosis - Fall on same level, unspecified diana - Contusion of left knee diana - Contusion of right knee diana - Contusion of other part of head - hematoma diana Followup: diana - With: Private Physician - When: 2 - 3 days - Reason: Recheck today's complaints, Continuance of care, Re-evaluation by your physician Discharge Instructions: - Discharge Summary Sheet diana - Contusion diana - Head Injury, Adult diana - Fall Prevention in the Home, Adult diana - Contusion, [id number] diana - Fall Prevention in the Home, Adult, [id number] diana - Head Injury, Adult, [id number] diana Forms: - Medication Reconciliation Form diana - Antibiotic Education diana - Prescription Opioid Use diana - Patient Portal Instructions diana - Leadership Thank You Letter [facility] Prescriptions: - Tylenol 325 mg Oral tablet - take 2 tablets ORAL route every 6 hours as needed; 30 tablet; Refills: 0, diana Product Selection Permitted Signatures: Dispatcher [employer] EDMS Roel Holt MD MD cha Peltier, Brian, RN RN Sarah Leal RN RN Dot Hines RN km10 Corrections: (The following items were deleted from the chart) 09:25 09:25 Head C Spine MPR Wo Con+CT.RAD.BRZ ordered. EDMS EDMS 09: 09:25 Knee Left 3 View+RAD.RAD.BRZ ordered. EDMS EDMS 09: 09:25 Knee Right 3 View+RAD.RAD.BRZ ordered. EDMS EDMS
[2025-06-12 14:45] VITALS: O2SAT 100
[2025-06-12 14:47] VITALS: TEMP 97.3
[2025-06-12 14:48] VITALS: BP 131/71
== END 2025-06-12 11:43 | disposition home or self-care (01) ==
LOC: ER 09:14
DX: S00.93XA Contusion of unspecified part of head, initial encounter (principal); S80.02XA Contusion of left knee, initial encounter; S80.01XA Contusion of right knee, initial encounter; M81.0 Age-related osteoporosis without current pathological fracture; W18.30XA Fall on same level, unspecified, initial encounter; Y93.9 Activity, unspecified; Y92.9 Unspecified place or not applicable; Z88.5 Allergy status to narcotic agent; Z88.1 Allergy status to other antibiotic agents
CPT/HCPCS: 70450; 72125; 99284